=== PATIENT | female | born 1980 | race Caucasian/White ===

== ENCOUNTER → 2017-04-18 | Emergency (ER) | payer SELFPAY ==
--- NOTE | 2017-04-18 01:30 | NUR ---
Patient stated pain was gone, patient no longer wanted to go to ER. Left without being triaged.
== END | disposition home or self-care (01) ==
LOC: ER 01:03
DX: R10.9 Unspecified abdominal pain (principal); Z53.21 Procedure and treatment not carried out due to patient leaving prior to being seen by health care provider